=== PATIENT | female | born 1950 | race African-American/Black ===

== ENCOUNTER 2019-02-16 05:25 | Day surgery (SDC) | payer MEDICARE, MEDICAID ==
--- NOTE | 2019-02-13 13:02 | Pre-Procedure Note/Attestation ---
Pre-Procedure Note/Attestation Complete Prior to Procedure Planned Procedure: right Procedure Narrative: Cataract extraction with intraocular lens implant right eye Indications for Procedure Pre-Operative Diagnosis: Nuclear sclerotic cataract right eye Attestation I attest that I discussed the nature of the procedure; its benefits; risks and complications; and alternatives (and the risks and benefits of such alternatives ), prior to the procedure, with the patient (or the patient's legal congressional representative). I attest that, if there was a reasonable possibility of needing a blood transfusion, the patient (or the patient's legal congressional representative) was given the [facility] standardized written summary, pursuant to the [place] El[place] Blood Safety Act ([place] Health and Safety Code # 1645, as amended). I attest that I re-evaluated the patient just prior to the surgery and that there has been no change in the patient's H&P, except as documented below: Garland Cabrera MD Feb 13, 2019 13:02
--- NOTE | 2019-02-13 13:05 | Opthalmology H&P ---
Ophthalmology H&P H&P Chief Complaint: decreased vision in right eye HPI Vision Affects Ability to: read, manage personal affairs HPI Narrative blurry vision Exam Visual Acuity: OD 20/60 OD 20/60 Tension: OD 17 OS 16 Eye Exam: normal OU: external exam, palpebral fissure-width, marginal reflex distance, levator function, corneas, anterior chambers, lens - NS Cataracts OU, fundus exam; findings: lens - NS Cataracts OU Assessment/Plan Treatment Plan: cataract extraction w/ lens implant Goals of Treatment: improvement of vision, enhance quality of life Attestation Attestation The risks and benefits of the surgery as well as alternative procedures were explained to the patient in detail. Garland Cabrera MD Feb 13, 2019 13:05
[~2019-02-16] VITALS: Ht 165.1 cm; Wt 78.9 kg
[2019-02-16] VITALS (8 sets, daily range): BP systolic 132–156; BP diastolic 61–83
[~2019-02-16 05:25] MED LIST: ASPIR 8181 MG ORAL; BUSPIRONE HCL15 MG ORAL; LISINOPRIL20 MG ORAL; METFORMIN HCL500 M1 ORAL; PRAVASTATIN SOD20 M1 ORAL; VENTOLIN HFA18 GM INH; ZOLOFT50 MG ORAL
[2019-02-16] MEDS: Tropicamide 1% Opth 15ml Soln RIGHT EYE SCH ×3 (05:59→06:17)
[2019-02-16] MEDS: Cyclopentolate 1% Opth Sol 2ml RIGHT EYE SCH ×3 (05:59→06:16)
[2019-02-16] MEDS: Phenylephrine 10% Opth Soln 5ml RIGHT EYE SCH ×3 (06:00→06:17)
[2019-02-16] MEDS ORDERED: FAMOTIDINE20 MG ORAL (06:14)
[2019-02-16] MEDS ORDERED: Proparacaine 0.5% Opth Soln 15ml RIGHT EYE ONE (07:00)
[2019-02-16] MEDS ORDERED: Akten 3.5% 1ml Btl RIGHT EYE ONE (07:00)
[2019-02-16] MEDS ORDERED: Tetracaine 0.5% Opth 4ml Soln RIGHT EYE ONE ×2 (07:00)
[2019-02-16] MEDS ORDERED: EPINEPHrine 1mg/1ml Amp ONE (07:03)
[2019-02-16] MEDS ORDERED: Lidocaine 2% MPF 5ml Vial INJ ONE (07:04)
[2019-02-16] MEDS ORDERED: Polysporin Opth Oint 3.5gm ONE (07:04)
[2019-02-16] MEDS ORDERED: acetaZOLAMIDE 500mg Inj ONE (07:04)
[2019-02-16] MEDS ORDERED: Lidocaine 4% Amp ONE (07:04)
[2019-02-16] MEDS ORDERED: BSS 500ml btl ONE (07:04)
[2019-02-16] MEDS ORDERED: BSS 15ml BTL ONE (07:04)
[2019-02-16] MEDS ORDERED: Carbachol 0.01% Op Soln 1.5ml vial ONE (07:04)
[2019-02-16] MEDS ORDERED: Povidone-Iodine 5% opth solution ONE (07:05)
[2019-02-16] MEDS ORDERED: Bupivacaine 0.75% 30ml vial INJ ONE (07:05)
[2019-02-16] MEDS ORDERED: Sodium Hyaluronate 14 mg/ml 0.85ml ONE (07:05)
[2019-02-16] MEDS ORDERED: NS Irrig 1000ml ONE (07:30)
[2019-02-16] MEDS ORDERED: Lidocaine 1% MPF 10mg/ml 5ml ONE ×2 (07:30→07:32)
[2019-02-16] MEDS ORDERED: Sterile Water Irrig 1000ml IRRIG ONE (07:30)
[2019-02-16] MEDS ORDERED: LR 1000ml ONE (07:30)
[2019-02-16] MEDS ORDERED: Propofol 200mg/20ml IV ONE (07:32)
[2019-02-16] MEDS ORDERED: LR 1000ml 1,000 ML IVLG SCH (07:40)
[2019-02-16] MEDS ORDERED: Labetalol 5mg/ml 20ml vial IV PRN (07:45)
[2019-02-16] MEDS ORDERED: Midazolam 2mg/2ml Inj IVP PRN (07:45)
[2019-02-16] MEDS ORDERED: DiphenhydrAMINE 50mg/ml Inj IVP PRN (07:45)
[2019-02-16] MEDS ORDERED: Meperidine 50mg/ml Inj(FOR RIGORS ONLY) IVP PRN (07:45)
[2019-02-16] MEDS ORDERED: LORazepam Inj 2mg/ml 1ml IV PRN (07:45)
[2019-02-16] MEDS ORDERED: fentaNYL 100 mcg/2 mL IV PRN (07:45)
[2019-02-16] MEDS ORDERED: Ketorolac 30mg Inj IV PRN ×2 (07:45)
[2019-02-16] MEDS ORDERED: Atropine Sulfate 0.4mg/ml inj IVP PRN (07:45)
[2019-02-16] MEDS ORDERED: Metoclopramide 10mg/2ml Inj IVP PRN (07:45)
--- NOTE | 2019-02-16 07:59 | Anethesia Preoperative Eval ---
Anesthesia Pre-op PMH/ROS General Date of Evaluation: Feb 16, 2019 Time of Evaluation: 07:31 Anesthesiologist: Param ASA Score: ASA 3 Mallampati Score Class I : Soft palate, uvula, fauces, pillars visible Class II: Soft palate, uvula, fauces visible Class III: Soft palate, base of uvula visible Class IV: Only hard plate visible Mallampati Classification: Class II Surgeon: Deborah Diagnosis: Cataract OD Surgical Procedure: Cat Ext IOL OD Anesthesia History: none Family History: no anesthesia problems Allergies: Coded Allergies: CARISOPRODOL (Verified Allergy, Intermediate, 02/13/19) itching MORPHINE (Verified Allergy, Intermediate, 02/13/19) ITCHING,WELTS Medications: see eMAR Patient NPO?: Yes Past Medical History Cardiovascular: Reports: HTN, other - HL Pulmonary: Reports: asthma Endocrine: Reports: DM HEENT: Reports: cataract (L), cataract (R) PSxH Narrative: Cholecystectomy Anesthesia Pre-op Phys. Exam Physician Exam Last Vital Signs Date Time Temp Pulse Resp B/P (MAP) Pulse Ox O2 Delivery O2 Flow Rate FiO2 02/16/19 06:07 97.6 77 20 132/80 99 Room Air Constitutional: NAD Neurologic: CN 2-12 intact Cardiovascular: RRR Respiratory: CTA Gastrointestinal: S/NT/ND Airway Exam Mallampati Score: Class II MO: limited ROM: limited Anesthesia Pre-op A/P Labs Chemistry Test 02/16/19 06:10 Sodium Level 136 MMOL/L (136-145) Risk Assessment & Plan Assessment: ASA 3 Plan: TIVA Status Change Before Surgery: No Haim Virgen MD Feb 16, 2019 07:59
--- NOTE | 2019-02-16 08:00 | Immediate Post-Op Evaluation ---
Immediate Post-Op Evalulation Immediate Post-Op Evalulation Procedure: Cat Ext IOL OD Date of Evaluation: Feb 16, 2019 Time of Evaluation: 08:34 IV Fluids: 750 LR Blood Products: 0 Estimated Blood Loss: 1 Urinary Output: 0 Blood Pressure Systolic: 168 Blood Pressure Diastolic: 78 Pulse Rate: 68 Respiratory Rate: 16 O2 Sat by Pulse Oximetry: 100 Temperature (Fahrenheit): 97.7 Pain Score (1-10): 1 Nausea: No Vomiting: No Complications 0 Patient Status: awake, reacts, patent, none Hydration Status: adequate Haim Virgen MD Feb 16, 2019 08:00
--- NOTE | 2019-02-16 08:01 | 48 Hour Post Anesthesia Eval ---
Post Anesthesia Evaluation Procedure: Cat Ext IOL OD Date of Evaluation: Feb 16, 2019 Time of Evaluation: 10:23 Blood Pressure Systolic: 167 0: 77 Pulse Rate: 63 Respiratory Rate: 18 Temperature (Fahrenheit): 98 O2 Sat by Pulse Oximetry: 100 Airway: patent Nausea: No Vomiting: No Pain Intensity: 1 Hydration Status: adequate Cardiopulmonary Status: Stable Mental Status/LOC: patient returned to baseline Follow-up Care/Observations: 0 Post-Anesthesia Complications: 0 Follow-up care needed: ready to discharge Haim Virgen MD Feb 16, 2019 08:01
[2019-02-17] MEDS ORDERED: Tetracaine 0.5% Opth 4ml Soln RIGHT EYE ONE (07:00)
[2019-02-17] MEDS ORDERED: Tropicamide 1% Opth 15ml Soln RIGHT EYE SCH (07:00)
[2019-02-17] MEDS ORDERED: Phenylephrine 10% Opth Soln 5ml RIGHT EYE SCH (07:00)
[2019-02-17] MEDS ORDERED: Proparacaine 0.5% Opth Soln 15ml RIGHT EYE ONE (07:00)
[2019-02-17] MEDS ORDERED: Akten 3.5% 1ml Btl RIGHT EYE ONE (07:00)
[2019-02-17] MEDS ORDERED: Cyclopentolate 1% Opth Sol 2ml RIGHT EYE SCH (07:00)
--- NOTE | 2019-02-17 12:01 | Brief Operative Note ---
Immediate Post Operative Note Operative Note Chief Complaint: Blurry vision Pre-op Diagnosis: Nuclear sclerotic cataract right eye Procedure: Cataract Extraction with IOL Implant Right Eye Post-op Diagnosis: Pseudo right eye Findings: consistent w/pre-op dx studies Surgeon: Garland Cabrera MD Anesthesiologist: Haim Virgen Anesthesia: MAC Specimen: none Complications: none Condition: stable Fluids: LR Estimated Blood Loss: none Drains: none Implant(s) used?: Yes - IOL OD Garland Cabrera MD Feb 17, 2019 12:01
--- NOTE | 2019-02-17 12:08 | Operative Note - PDOC ---
Operative Note Operative Note Date of Operation/Procedure: Feb 16, 2019 Chief Complaint: Blurry vision Pre-op Diagnosis: Nuclear sclerotic cataract right eye Procedure: Cataract Extraction with IOL Implant Right Eye Post-op Diagnosis: Pseudo right eye Operative Findings: consistent w/pre-op dx studies Surgeon: Garland Cabrera MD Anesthesiologist: Haim Virgen Anesthesia: MAC Specimen: none Complications: none Condition: stable Fluids: LR Estimated Blood Loss: none Drains: none Implant(s) used?: Yes - IOL-OD Indications for Procedure Nuclear sclerotic cataract right eye Description of Procedure This patient has been complaining visually significant of cataract in the right eye with the best corrected visual acuity of 20/60 and under moderate glare conditions worse. The patient complains of difficulties with glare when driving at night and in performing activities of daily living and wants to manage personal affairs with comfort and accuracy and see well enough to move with safety at home and outdoors. The risks, benefits and alternatives of the procedure were discussed with the patient in the office prior to scheduling surgery. All questions from the patient were answered after the surgical procedure was explained in detail. The risks of the procedure as explained to the patient include, but are not limited to, pain, infection, bleeding, loss of vision, retinal detachment, need for further surgery, loss of lens nucleus, double vision, etc. Alternative procedures were discussed which include, to do nothing or seek a second opinion. Informed consent for this procedure was obtained from the patient. The patient was referred to a primary care physician for a cardiopulmonary clearance prior to surgery, after proper evaluation was done patient was properly scheduled for outpatient surgery. The patient was brought to the operating room where the anesthesiologist established I.V. lines and cardiac monitoring leads. Mild intravenous sedation was administered. The patient was then prepared with a 5% solution of povidone -iodine to the conjunctival fornix and lashes, and a 5% solution of povidone- iodine to the lids and periorbital skin. The patient was then draped in the usual sterile fashion. A lid speculum was then placed in the operative eye. A keratome blade was then used to create a biplanar incision into the anterior chamber. Viscoelastics was then instilled into the anterior chamber. A capsulorrhexis was then fashioned with an utrata forceps. BSS and a cannula were then used to hydrodissect and hydro delineate the lens. Paracentesis incision was made at 3 o'clock with sharp blade. The phacoemulsification unit, after being properly adjusted and tested, was then used to emulsify the nucleus. Residual cortical material was aspirated with the irrigation and aspiration unit. Healon was then instilled into the anterior chamber. The corneal wound was then enlarged to the size of the optic with the robert keratome blade. The intraocular lens was then inspected for right power and size and thought to be satisfactory. Then the lens was gently placed in the capsular bag. Positioning within the capsular bag was confirmed by direct visualization. Optic centration was accomplished with a Sinskey hook. Viscoelastics was removed from the anterior chamber using the irrigation and aspiration unit. The corneal wound was then tested for leaks and none were found. The lid speculum were then removed. Sponge and needle counts were correct. An eye patch and shield were placed over the operative eye. The patient was taken to the recovery room in stable condition. There were no complications. The patient tolerated the procedure well. The patient was then transferred to the ambulatory surgery unit in stable and satisfactory condition , was given detailed written instructions and asked to follow up in the office the next day. Garland Cabrera MD Feb 17, 2019 12:08
== END 2019-02-16 09:45 | disposition home or self-care (01) ==
LOC: SUR 05:25
DX: H25.11 Age-related nuclear cataract, right eye (principal); I10 Essential (primary) hypertension; Z90.49 Acquired absence of other specified parts of digestive tract; Z88.6 Allergy status to analgesic agent; E11.9 Type 2 diabetes mellitus without complications
CPT/HCPCS: 36415; 66984; 82962; 84295; J0171; J2704; J3370; V2632; 94003; 94150